=== PATIENT | female | born 2000 | race Caucasian/White ===

== ENCOUNTER 2022-01-21 16:41 | Outpatient (CLI) | payer BC, SELFPAY | END 2022-01-21 16:42 | disposition home or self-care (01) | LOC: NFLDUCREF 02-02 11:14 | PROVIDERS: Visit Provider Student in an Organized Health Care Education/Training Program | DX: R10.31 Right lower quadrant pain (principal) | CPT/HCPCS: 87086 ==

== ENCOUNTER 2022-12-13 15:05 | Outpatient (CLI) | payer BC, SELFPAY | END 2022-12-13 15:06 | disposition home or self-care (01) | LOC: NFLDREF 12-14 07:08 | PROVIDERS: Visit Provider Physician Assistant | DX: R30.0 Dysuria (principal); N89.8 Other specified noninflammatory disorders of vagina; B37.9 Candidiasis, unspecified; B37.31 Acute candidiasis of vulva and vagina | CPT/HCPCS: 87086 ==

== ENCOUNTER 2023-04-22 11:43 | Outpatient (CLI) | payer BC, SELFPAY ==
[2023-04-22 12:07] LABS: Hematocrit 38.8 % (33.0-51.0); Hemoglobin* 12.9 gm/dL (12.0-16.0); Mean Corpuscular HGB Conc 33 gm/dL (32-36); Mean Corpuscular Hemoglobin 29 pg (26-34); Mean Corpuscular Volume 88 fL (80-100); Platelet Count* 401 K/uL (140-440); Red Blood Count 4.39 m/uL (4.00-5.20); White Blood Count* 8.61 K/uL (4.50-11.00)
[2023-04-22 12:08] LABS: Slide Review Reflex No
[2023-04-22 12:55] LABS: Free T4 Free Thyroxine* 0.88 ng/dL (0.70-1.85)
== END 2023-04-22 11:44 | disposition home or self-care (01) ==
LOC: LAB 11:43
PROVIDERS: Visit Provider Nurse Practitioner
DX: Z13.0 Encounter for screening for diseases of the blood and blood-forming organs and certain disorders involving the immune mechanism (principal); E04.9 Nontoxic goiter, unspecified
CPT/HCPCS: 36415; 84439; 84443; 85027